=== PATIENT | female | born 1935 | race Two or more races ===

== ENCOUNTER 2016-11-28 10:54 | Emergency (ER) | payer MEDICARE, MEDICAID ==
[~2016-11-28] VITALS: Ht 160 cm; Wt 76.2 kg
--- NOTE | 2016-11-28 11:00 | NUR ---
PT AMBULATORY TO ER BED 09. C/O ABDOMINAL PAIN, CONSTIPATION. NO BM FOR WEEKS. ALSO C/O HIGH BLOOD PRESSURE. GOWNED AND PLACE ON MONITOR. AWAITING MD HARLEY.
--- NOTE | 2016-11-28 11:34 | NUR ---
DR RAJPUT AT BEDSIDE FOR EVAL.
--- NOTE | 2016-11-28 11:45 | NUR ---
IV LINE STARTED BLOOD DRAWN AND SENT TO LAB.
[2016-11-28] MEDS ORDERED: ONDANSETRON HCL/PF 4 MG/2 ML VIAL ONE (11:46)
[2016-11-28] MEDS ORDERED: IV SET PRIMARY 1 EA INFUS.SET MC ONE (11:46)
[2016-11-28] MEDS ORDERED: MORPHINE SULFATE INJ 2 MG/ML DISP.SYRIN ONE (11:46)
[2016-11-28] MEDS ORDERED: IV NS 0.9% 1,000 ML ONE (11:46)
[2016-11-28 11:52] LABS: BASOPHILS # (AUTO) 0.1 /CMM (0.0-0.2); BASOPHILS % (AUTO) 2.5 % (0.0-2.0); EOSINOPHILS % (AUTO) 0.4 % (0.0-6.0); HEMATOCRIT 45 % (33-45); LYMPHOCYTES # (AUTO) 1.2 /CMM (0.8-4.8); LYMPHOCYTES % (AUTO) 21.2 % (20.0-44.0); MEAN CORPUSCULAR HEMOGLOBIN 31 PG (26.0-33.0); MEAN CORPUSCULAR HGB CONC 34 g/dl (31.0-36.0); MEAN CORPUSCULAR VOLUME 92 fL (82-100); MONOCYTES # (AUTO) 0.3 /CMM (0.1-1.30); MONOCYTES % (AUTO) 5.5 % (2.0-12.0); NEUTROPHILS # (AUTO) 4.1 /CMM (1.8-8.9); NEUTROPHILS % (AUTO) 70.4 % (43.0-81.0); PLATELET COUNT (AUTO) 154 /CMM (150-450); RDW COEFFICIENT OF VARIATION 12.9 (11.5-15.0); RED BLOOD CELL COUNT(AUTO) 4.83 MIL/uL (4.0-5.2); WHITE BLOOD COUNT (AUTO) 5.7 K/uL (4.3-11.0)
[2016-11-28 11:57] LABS: CALCIUM, SERUM 9.1 mg/dL (8.5-10.1); CREATININE 1.2 mg/dL (0.6-1.3); POTASSIUM 3.3 mmol/L (3.5-5.1)
[2016-11-28] MEDS ORDERED: MORPHINE SULFATE INJ 2 MG/ML DISP.SYRIN IV ONE (12:00)
[2016-11-28] MEDS ORDERED: IV NS 0.9% 1,000 ML BAG IV ONE (12:00)
[2016-11-28] MEDS ORDERED: ONDANSETRON HCL/PF 4 MG/2 ML VIAL IVP ONE (12:00)
[2016-11-28 12:03] LABS: ALBUMIN 3.5 g/dL (3.4-5.0); BILIRUBIN,DIRECT 0.1 mg/dL (0.0-0.2); BILIRUBIN,TOTAL 0.5 mg/dL (0.2-1.0)
[2016-11-28 12:04] LABS: APPEARANCE,URINE Clear (CLEAR); BILIRUBIN,URINE Negative (NEGATIVE); BLOOD, URINE Negative Ery/uL (NEGATIVE); COLOR,URINE Yellow (YELLOW); KETONES,URINE Negative (NEGATIVE); LEUKOCYTE ESTERASE ,URINE Negative (NEGATIVE); NITRITE, URINE Negative (NEGATIVE); PH,URINE 8.5 (5.0-8.0); PROTEIN,URINE Negative (NEGATIVE); UGLUCOSE Negative (NEGATIVE); UROBILINOGEN,URINE 0.2 EU/dL (0.2)
[2016-11-28] MEDS ORDERED: IV NS 0.9% 250 ML IV ONE (12:06)
[2016-11-28] MEDS ORDERED: CT SWABBABLE VALVE TRANS SET 1 EA INFUS.SET MC ONE (12:06)
[2016-11-28] MEDS ORDERED: IOHEXOL-300 100 ML VIAL IV ONE (12:06)
[2016-11-28] MEDS ORDERED: NA PHOS,M-B/NA PHOS,DI-BA 1 EA ENEMA RC ONE ×2 (13:23→13:30)
--- NOTE | 2016-11-28 14:31 | NUR ---
Patient discharged to home in stable condition. Written and verbal after care instructions given. Patient verbalizes understanding of instruction.IV removed. Catheter intact and site benign. Pressure and 4x4 applied to site. No bleeding noted.
[2016-11-28 14:32] VITALS: BP 142/77
== END 2016-11-28 14:33 | disposition home or self-care (01) ==
LOC: ER 10:59
DX: K59.00 Constipation, unspecified (principal); I10 Essential (primary) hypertension; R42 Dizziness and giddiness; K57.90 Diverticulosis of intestine, part unspecified, without perforation or abscess without bleeding; Z87.19 Personal history of other diseases of the digestive system
CPT/HCPCS: 36415; 74160; 80048; 80076; 81001; 83690; 85025; 87077; 87086; 87186; 93005; 96374; 96375; 99285; A4606; J2270; J2405; J7030; J7050; Q9967; 81000-TC; Z7610

== ENCOUNTER → 2019-04-14 | Emergency (ER) | payer MEDICARE, OTHER ==
[~2019-04-14] VITALS: Ht 167.6 cm; Wt 75.7 kg
[~2019-04-14] MED LIST: HYDROMORPHONE 1 MG/1 ML DISP.SYRIN ONE; HYDROMORPHONE INJ 2 MG/ML DISP.SYRIN IV ONE; LOSA25TA27 PO; OMEP40CA37 PO; ONDANSETRON HCL/PF 4 MG/2 ML VIAL IVP ONE; ONDANSETRON HCL/PF 4 MG/2 ML VIAL ONE; ZOLP5TAB8 PO
--- NOTE | 2019-04-14 05:00 | NUR ---
BIB FAMILY FOR C/O EPIGASTRIC PAIN. N/V X 5 DAYS. VSS. WILL CONT TO MONITOR ,
[2019-04-14 05:21] LABS: BASOPHILS % (AUTO) 0.3 % (0.0-2.0); HEMATOCRIT 44 % (33-45); HEMOGLOBIN 15.7 g/dL (11.5-14.8); LYMPHOCYTES # (AUTO) 1.3 /CMM (0.8-4.8); LYMPHOCYTES % (AUTO) 21.3 % (20.0-44.0); MEAN CORPUSCULAR HGB CONC 36 g/dl (31.0-36.0); MEAN CORPUSCULAR VOLUME 92 fL (82-100); MONOCYTES # (AUTO) 0.5 /CMM (0.1-1.30); MONOCYTES % (AUTO) 8.2 % (2.0-12.0); NEUTROPHILS # (AUTO) 4.2 /CMM (1.8-8.9); NEUTROPHILS % (AUTO) 69.2 % (43.0-81.0); PLATELET COUNT (AUTO) 148 /CMM (150-450); RED BLOOD CELL COUNT(AUTO) 4.77 MIL/uL (4.0-5.2); WHITE BLOOD COUNT (AUTO) 6.1 K/uL (4.3-11.0)
[2019-04-14 05:32] LABS: CARBON DIOXIDE 27 mmol/L (21-32); CHLORIDE 90 mmol/L (98-107); GLUCOSE 153 mg/dL (74-106); POTASSIUM 3.6 mmol/L (3.5-5.1); SODIUM SERUM 125 mmol/L (136-145); UREA NITROGEN, BLOOD 11 mg/dL (7-18)
[2019-04-14 05:37] LABS: ALANINE AMINOTRANSFERASE 24 U/L (12-78); ALBUMIN 3.3 g/dL (3.4-5.0); ALKALINE PHOSPHATASE 103 U/L (46-116); ASPARTATE AMINOTRANSFERASE 24 U/L (15-37); BILIRUBIN,DIRECT 0.2 mg/dL (0.0-0.2); BILIRUBIN,TOTAL 0.6 mg/dL (0.2-1.0); LIPASE 184 U/L (73-393); TOTAL PROTEIN, SERUM 6.9 g/dL (6.4-8.2)
--- NOTE | 2019-04-14 06:16 | NUR ---
US TECH AT THE BED SIDE
--- NOTE | 2019-04-14 06:54 | NUR ---
IV removed. Catheter intact and site benign. Pressure and 2x2 applied to site. No bleeding noted.
--- NOTE | 2019-04-14 07:16 | NUR ---
Patient discharged to home in stable condition. Rx and Written and verbal after care instructions given. Patient verbalizes understanding of instruction. son and the picked up the pt.
[2019-04-14 07:17] VITALS: BP 128/58
== END | disposition home or self-care (01) ==
LOC: ER 04:38
DX: R10.13 Epigastric pain (principal); R10.11 Right upper quadrant pain; E87.1 Hypo-osmolality and hyponatremia; I10 Essential (primary) hypertension
CPT/HCPCS: 36415; 76705; 80048; 80076; 83690; 85025; 85730; 96374; 96375; 99284; J1170; J2405